=== PATIENT | male | born 1960 | race Caucasian/White ===

== ENCOUNTER 2022-01-19 13:01 | Outpatient (CLI) | payer OTHER, SELFPAY ==
[2022-01-19 16:52] LABS: PSA Screen* 7.55 ng/mL (0.10-4.00)
== END 2022-01-19 13:02 | disposition home or self-care (01) ==
LOC: NFLDREF 14:08
PROVIDERS: PCP Internal Medicine; Visit Provider Internal Medicine
DX: Z12.5 Encounter for screening for malignant neoplasm of prostate (principal)
CPT/HCPCS: 84153

== ENCOUNTER 2022-12-07 09:42 | Outpatient (CLI) | payer OTHER, SELFPAY | END 2022-12-07 09:43 | disposition home or self-care (01) | LOC: NFLDREF 12:13 | PROVIDERS: PCP Internal Medicine; Referring Provider Internal Medicine; Visit Provider Internal Medicine | DX: Z12.5 Encounter for screening for malignant neoplasm of prostate (principal) | CPT/HCPCS: 84153 ==

== ENCOUNTER 2023-04-05 10:44 | Outpatient (CLI) | payer OTHER, SELFPAY ==
--- OUTSIDE RECORDS SUMMARY | 2023-04-05 10:48 | XMS_ITS | Clinical Summary ---
Author Name Unknown Organization [facility] Address [place], [place] [address] Care Team Providers Care Ems Manager Name Role Phone Pcp, No Primary Care Provider Unavailabl e Allergies No known active allergies Medications No known medications Active Problems Problem Noted Date Diagnosed Date Prostate cancer 12/19/2018 Kidney stones 05/03/2017 Elevated PSA 03/15/2017 Immunizations Name Administration Dates Next Due Influenza, IIV4 02/14/2018 Social History Tobacco Use Types Packs/Day Years Used Date Smoking Tobacco: Former Cigarettes 1 20 1 - 2009 Smokeless Tobacco: Never Tobacco Cessation:Counseling Given: Yes Alcohol Use Standard Drinks/Week Comments Not Currently 0 (1 standard drink = 0.6 oz pur e alcohol) Rare Sex and Gender Information Value Date Recorded Sex Assigned at Not on file Gender Identity Not on file Sexual Orientation Not on file Obstetrics History Last Filed Vital Signs Vital Sign Reading Time Taken Comments Blood Pressure 136/83 12/19/2018 12:57 PM CDT Pulse 78 12/19/2018 12:57 PM CDT Temperature - - Respiratory Rate 18 12/19/2018 12:5 7 PM CDT Oxygen Saturation 98% 12/19/2018 12: 57 PM CDT Inhaled Oxygen Concentration - - Weight 79.6 kg (175 lb 6.4 oz) 12/19/2018 12:57 PM CDT Pt weighed with shoes on. Height - - Body Mass Index - - Plan of Treatment Health Maintenance Due Date Last Done Comments COVID-19 vaccine series (#1) 01/28/1959 Tdap 1969 Depression screening for age 12+ 1970 HIV for age 15-65 1973 BMI (ht and wt on same day) for age 18+ 1976 Hepatitis C screening for ag e 18-79 1976 Tetanus booster 1978 Colonoscopy through age 75 07/29/2003 Lipids for age 45-75 07/29/2003 Zoster (shingles) series for age 50+ (1 of 2) 2008 Influenza for age 50-64 11/11/2022 02/14/2018 Pneumococcal series for age 6-64 Aged Out No longer eligible based on patient's age to complete this topic Care Teams Ems Manager Relationship Specialty Start Date End Date Pcp, No . PCP - General 10/25/16
== END 2023-04-05 10:45 | disposition home or self-care (01) ==
PROVIDERS: PCP Internal Medicine; Visit Provider Internal Medicine
DX: C61 Malignant neoplasm of prostate (principal); Z13.6 Encounter for screening for cardiovascular disorders; Z13.9 Encounter for screening, unspecified
CPT/HCPCS: 80053; 80061; G0103

== ENCOUNTER 2023-07-28 10:04 | Outpatient (CLI) | payer MEDICARE, SELFPAY ==
--- OUTSIDE RECORDS SUMMARY | 2023-08-17 07:30 | XMS_ITS | Clinical Summary ---
Author Organization [facility] Address [place], [place] [address] Care Team Providers Care Loan Supervisor Name Role Phone Pcp, No Primary Care [...] Health Maintenance Due Date Last Done Comments Tdap 1969 Depression screening for age 12+ 1970 HIV for age 15-65 1973 BMI (ht and wt on same day) for age 18+ 1976 Hepatitis C screening for age 18-79 1976 Tetanus booster 1978 Colonoscopy through age 75 07/29/2003 Lipids for age 45-75 07/29/2003 Zoster (shingles) series for age 50+ (1 of 2) 07/29/19 09 COVID-19 vaccine series (1 - 2022- season) 3 Pneumococcal series for age 65+ (1 of 1 - PCV) 024 Influenza for age 65+ 11/12/2023 02/14/2018 Care Teams Loan Supervisor Relationship Specialty Start Date End Date Pcp, No . PCP - General 10/25/16
== END 2023-07-28 10:05 | disposition home or self-care (01) ==
LOC: NFLDREF 08-17 07:28
PROVIDERS: PCP Internal Medicine; Referring Provider Internal Medicine; Visit Provider Internal Medicine
DX: C61 Malignant neoplasm of prostate (principal)
CPT/HCPCS: G0103

== ENCOUNTER 2023-11-21 09:19 | Outpatient (CLI) | payer MEDICARE, SELFPAY ==
--- OUTSIDE RECORDS SUMMARY | 2023-11-25 10:46 | XMS_ITS | Clinical Summary ---
Author Organization [facility] Address [place], [place] [address] Care Team Providers Care Stave Bolt Equalizer Name Role Phone Pcp, No Primary Care [...] age 50+ (1 of 2) 07/29/19 09 Pneumococcal series for age 65+ (1 of 1 - PCV) 024 COVID-19 vaccine series (1 - 2022- season) 4 Influenza for age 65+ 11/12/2023 02/14/2018 Care Teams Stave Bolt Equalizer Relationship Specialty Start Date End Date Pcp, No . PCP - General 10/25/16
== END 2023-11-21 09:20 | disposition home or self-care (01) ==
LOC: NFLDREF 11-25 10:45
PROVIDERS: PCP Internal Medicine; Referring Provider Internal Medicine; Visit Provider Internal Medicine
DX: C61 Malignant neoplasm of prostate (principal)
CPT/HCPCS: G0103

== ENCOUNTER 2024-05-06 09:57 | Outpatient (CLI) | payer MEDICARE, SELFPAY | END 2024-05-06 09:58 | disposition home or self-care (01) | LOC: NFLDREF 05-08 06:07 | PROVIDERS: PCP Internal Medicine; Referring Provider Internal Medicine; Visit Provider Internal Medicine | DX: R97.20 Elevated prostate specific antigen [PSA] (principal) | CPT/HCPCS: 84153 ==

== ENCOUNTER 2024-10-29 10:58 | Outpatient (CLI) | payer MEDICARE, SELFPAY | END 2024-10-29 10:59 | disposition home or self-care (01) | LOC: NFLDREF 11-05 13:48 | PROVIDERS: PCP Internal Medicine; Referring Provider Internal Medicine; Visit Provider Internal Medicine | DX: R97.20 Elevated prostate specific antigen [PSA] (principal); Z12.5 Encounter for screening for malignant neoplasm of prostate | CPT/HCPCS: G0103 ==

== ENCOUNTER 2025-02-26 11:09 | Outpatient (CLI) | payer MEDICARE, SELFPAY | END 2025-02-26 11:10 | disposition home or self-care (01) | LOC: NFLDREF 03-03 10:48 | PROVIDERS: PCP Internal Medicine; Referring Provider Internal Medicine; Visit Provider Internal Medicine | DX: R97.20 Elevated prostate specific antigen [PSA] (principal) | CPT/HCPCS: G0103 ==

== ENCOUNTER 2025-03-11 09:21 | Outpatient (CLI) | payer MEDICARE, SELFPAY ==
--- NOTE | 2025-03-11 10:47 | P.ANES_ITS ---
Anesthesia Charges Start Date/Time Anesthesia Start Date: 03/11/25 Anesthesia Start Time: 10:12 Stop Date/Time Anesthesia Stop Date: 03/11/25 Anesthesia Stop Time: 10:46 Coding CPT Codes CPT Codes: TRAE GABRIEL INTST NDSC NOS - 25306 ([id number]) P2 - PATIENT W/MILD SYST DISEASE, QZ - SCAFFOLDER SVC W/O TIN POT OPERATOR BY
--- NOTE | 2025-03-11 10:47 | W.ANESCHARGE ---
Anesthesia Charges Start Date/Time Anesthesia Start Date: 03/11/25 Anesthesia Start Time: 10:12 Stop Date/Time Anesthesia Stop Date: 03/11/25 Anesthesia Stop Time: 10:46 Coding CPT Codes CPT Codes: TRAE GABRIEL INTST NDSC NOS - 90152 ([id number]) P2 - PATIENT W/MILD SYST DISEASE, QZ - INTER[employer]ATIONAL TAX MANAGER SVC W/O CLAMSHELL ENGINEER BY
== END 2025-03-11 09:22 | disposition home or self-care (01) ==
LOC: OP CLINIC 09:23
PROVIDERS: PCP Internal Medicine; Visit Provider Surgery
DX: Z12.11 Encounter for screening for malignant neoplasm of colon (principal); Z86.0100 Personal history of colon polyps, unspecified; D12.3 Benign neoplasm of transverse colon
CPT/HCPCS: 00811; 45385